=== PATIENT | male | born 1970 ===

== ENCOUNTER 2018-07-13 01:28 | Emergency (ER) | payer SELFPAY ==
[2018-07-13 01:39] VITALS: RESP 20
--- NOTE | 2018-07-13 02:19 | C.PDOC ---
History Of Present Illness 48 year old male brought in by EMS after being found intoxicated in public. Denies any complaints at this time. Time Seen by Provider: 07/13/18 01:47 Chief Complaint (Nursing): Substance Abuse History Per: Patient, EMS History/Exam Limitations: no limitations Onset/Duration Of Symptoms: Hrs Current Symptoms Are (Timing): Still Present Suicide/Self Injury Attempted (Context): None Modifying Factor(s): Alcohol Associated Symptoms: denies: Depression, Suicidal Thoughts Involuntary Hold By: None Recent travel outside of the [place]: No Past Medical History Reviewed: Historical Data, Nursing Documentation, Vital Signs Vital Signs: Last Vital Signs Temp 97.8 F 07/13/18 01:30 Pulse 92 H 07/13/18 01:30 Resp 20 07/13/18 01:30 BP 110/65 07/13/18 01:30 Pulse Ox 94 L 07/13/18 01:30 Family History: States: Unknown Family Hx - Social History Hx Alcohol Use: Yes Hx Substance Use: No - Immunization History Hx Tetanus Toxoid Vaccination: No Hx Influenza Vaccination: No Hx Pneumococcal Vaccination: No Review Of Systems Constitutional: Negative for: Fever, Chills Cardiovascular: Negative for: Chest Pain, Palpitations Respiratory: Negative for: Cough, Shortness of Breath Gastrointestinal: Negative for: Nausea, Vomiting Neurological: Negative for: Weakness, Numbness Physical Exam - Physical Exam Appears: Non-toxic, Other (ETOH on breath, no sign of injury) Skin: Normal Color, Warm, Dry Head: Atraumatic, Normacephalic Eye(s): bilateral: Normal Inspection, PERRL, EOMI Oral Mucosa: Moist Neck: Normal, Supple Chest: Symmetrical, No Tenderness Cardiovascular: Rhythm Regular Respiratory: Normal Breath Sounds, No Rales, No Rhonchi, No Wheezing Gastrointestinal/Abdominal: Soft, No Tenderness Extremity: Normal ROM (x4) Neurological/Psych: Oriented x3, Normal Speech ED Course And Treatment O2 Sat by Pulse Oximetry: 94 Medical Decision Making Medical Decision Making: Patient with acute ETOH intoxication, will discharge when clinically sober. 0400 Patient is awake alert and walking around with steady gait, vitals are stable, deemed clinically sober, stable for discharge. Disposition - Disposition Disposition: HOME/ ROUTINE Disposition Time: 04:02 Condition: GOOD Instructions: Alcohol Use - When Is Drinking a Problem? Forms: [employer] ([place]) Print Language: AMHARIC - POA Present On Arrival: None - Clinical Impression Clinical Impression: Alcohol intoxication - PA / LAY OUT CARPENTER / Resident Statement MD/DO has reviewed & agrees with the documentation as recorded. - Scribe Statement The provider has reviewed the documentation as recorded by the Scribaline Rivas All medical record entries made by the Brookibaline were at my direction and perso ghazal dictated by me. I have reviewed the chart and agree that the record accurately reflects my personal performance of the history, physical exam, medical decision making, and the department course for this patient. I have also personally directed, reviewed, and agree with the discharge instructions and disposition.
[2018-07-13 04:25] VITALS: BP 110/70; PULSE 70; TEMP 98; O2SAT 97
== END 2018-07-13 04:20 | disposition home or self-care (01) ==
LOC: C.ER 01:28
DX: F10.129 Alcohol abuse with intoxication, unspecified (principal)